=== PATIENT | female | born 1960 | race Caucasian/White ===

== ENCOUNTER 2025-05-08 11:47 | Outpatient (CLI) | payer OTHER, SELFPAY ==
--- NOTE | 2025-05-08 13:16 | P.ANES_ITS ---
Anesthesia Charges Start Date/Time Anesthesia Start Date: 05/08/25 Anesthesia Start Time: 12:48 Stop Date/Time Anesthesia Stop Date: 05/08/25 Anesthesia Stop Time: 13:17 Coding CPT Codes CPT Codes: DARRIAN LWR INTST NDSC NOS - [id number] ([id number]) P2 - PATIENT W/MILD SYST DISEASE, QK - MANAGER SHIFT 2-4 CNCRNT ANES PROC, QX - SHOCK ABSORBER INSTALLER SVC W/ MD MED DIRECTION
--- NOTE | 2025-05-08 13:16 | W.ANESCHARGE ---
Anesthesia Charges Start Date/Time Anesthesia Start Date: 05/08/25 Anesthesia Start Time: 12:48 Stop Date/Time Anesthesia Stop Date: 05/08/25 Anesthesia Stop Time: 13:17 Coding CPT Codes CPT Codes: DARRIAN LWR INTST NDSC NOS - [id number] ([id number]) P2 - PATIENT W/MILD SYST DISEASE, QK - VEGETABLE I FARMWORKER 2-4 CNCRNT ANES PROC, QX - BULL WHEEL WORKER SVC W/ MD MED DIRECTION
--- NOTE | 2025-05-08 13:54 | P.ANES_ITS ---
Anesthesia Charges Start Date/Time Anesthesia Start Date: 05/08/25 Anesthesia Start Time: 12:48 Stop Date/Time Anesthesia Stop Date: 05/08/25 Anesthesia Stop Time: 13:17 Coding CPT Codes CPT Codes: DARRIAN LWR INTST NDSC NOS - [id number] ([id number]) P2 - PATIENT W/MILD SYST DISEASE, QK - HEEL SLUGGER 2-4 CNCRNT ANES PROC, QX - SPRING TESTER SVC W/ MD MED DIRECTION
--- NOTE | 2025-05-08 13:54 | W.ANESCHARGE ---
Anesthesia Charges Start Date/Time Anesthesia Start Date: 05/08/25 Anesthesia Start Time: 12:48 Stop Date/Time Anesthesia Stop Date: 05/08/25 Anesthesia Stop Time: 13:17 Coding CPT Codes CPT Codes: DARRIAN LWR INTST NDSC NOS - [id number] ([id number]) P2 - PATIENT W/MILD SYST DISEASE, QK - CASH GRAIN GROWER 2-4 CNCRNT ANES PROC, QX - BLASTING CONTRACT MAN SVC W/ MD MED DIRECTION
== END 2025-05-08 11:48 | disposition home or self-care (01) ==
LOC: OP CLINIC 11:52
PROVIDERS: PCP Family Medicine; Visit Provider Internal Medicine Gastroenterology
DX: Z12.11 Encounter for screening for malignant neoplasm of colon (principal); R19.5 Other fecal abnormalities; D12.2 Benign neoplasm of ascending colon; D12.3 Benign neoplasm of transverse colon; D12.8 Benign neoplasm of rectum
CPT/HCPCS: 00811; 00812; 45385; 88305; J2704